=== PATIENT | male | born 1995 | race African-American/Black ===

== ENCOUNTER 2019-10-07 23:09 | Emergency (ER) | payer SELFPAY ==
[~2019-10-07] VITALS: Ht 182.9 cm; Wt 102.1 kg
--- NOTE | 2019-10-07 23:54 | Emergency Room Report ---
History of Present Illness General Chief Complaint: Male Urogenital Problems Source: Patient Present Illness [facility] This a 23-year-old male with no past medical history. He presents with chief complaint of swelling irritation to his foreskin. Onset for last 2-3 days. No history of diabetes. He is sexually active with protection all the time per patient. His girlfriend has a history of chlamydia for which she was treated also last year. He denies any discharge. No dysuria frequency. He has a second intercourse a week ago. In between he he also masturbated. Denies any other trauma. 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 Patient History Past Medical History: see triage record, old chart reviewed Past Surgical History: none Pertinent Family History: none Social History: Denies: smoking Immunizations: other Reviewed Nursing Documentation: PMH: Agreed; PSxH: Agreed Nursing Documentation-PMH Past Medical History: No Stated History Review of Systems Eye: Denies: eye pain, blurred vision ENT: Denies: ear pain, nose congestion, throat swelling Respiratory: Denies: cough, shortness of breath Cardiovascular: Denies: chest pain, palpitations Gastrointestinal: Denies: abdominal pain, diarrhea, nausea, vomiting Musculoskeletal: Denies: back pain, joint pain Skin: Denies: rash Neurological: Denies: headache, numbness Endocrine: Denies: increased thirst, increased urine Hematologic/Lymphatic: Denies: easy bruising All Other Systems: negative except mentioned in HPI Physical Exam Vital Signs Date Time Temp Pulse Resp B/P (MAP) Pulse Ox O2 Delivery O2 Flow Rate FiO2 10/07/19 23:22 98.2 75 18 139/78 (98) 99 Room Air Vitals unremarkable Sp02 EP Interpretation: reviewed, normal General Appearance: well appearing, no apparent distress, alert Head: normocephalic, atraumatic Eyes: bilateral eye PERRL, bilateral eye EOMI ENT: hearing grossly normal, normal pharynx Neck: full range of motion, supple, no meningismus Respiratory: chest non-tender, lungs clear, normal breath sounds Cardiovascular #1: regular rate, rhythm, no murmur Gastrointestinal: normal bowel sounds, non tender, no mass, no organomegaly, no bruit, non-distended Genitourinary: other (Patient is uncircumcised. there is mild irritation to tip of foreskin on the ventral aspect. no discharge. no vesicular lesion.) Musculoskeletal: back normal, normal range of motion, gait/station normal Psychiatric: mood/affect normal Medical Decision Making Diagnostic Impression: Primary Impression: Foreskin inflammation ER Course Patient with foreskin irritation. No evidence of diabetes. Covering for gonorrhea chlamydia. Last Vital Signs Date Time Temp Pulse Resp B/P (MAP) Pulse Ox O2 Delivery O2 Flow Rate FiO2 10/07/19 23:22 98.2 75 18 139/78 (98) 99 Room Air Status: improved Disposition: HOME, SELF-CARE Condition: Stable Scripts Nystatin/Triamcin (NYSTATIN-TRIAMCINOLONE CREAM) 15 Gm Cream..g. 15 GM TP TID, #15 GM Prov: Bubba Bernal MD 10/07/19 Referrals: NOT CHOSEN IPA/,REFERRING (PCP) Additional Instructions: Follow-up with your doctor in 7 days. No intercourse or masturbation until symptoms resolve. Return if worse. Bubba Bernal MD Oct 07, 2019 23:54
[2019-10-07] MEDS ORDERED: NYSTATIN-TRIAMC15 G2 TP (23:56)
[2019-10-08] VITALS: BP 139/78
[2019-10-08 00:05] VITALS: BP 139/78
== END 2019-10-08 00:05 | disposition home or self-care (01) ==
LOC: EMR 23:37
DX: N49.9 Inflammatory disorder of unspecified male genital organ (principal)
CPT/HCPCS: 87491; 87590; 99282